=== PATIENT | female | born 1995 | race Caucasian/White ===

== ENCOUNTER 2018-02-27 15:01 | Emergency (ER) | payer BC, MEDICAID ==
[~2018-02-27] VITALS: Ht 162.6 cm; Wt 100.0 kg
[~2018-02-27 15:01] MED LIST: CYCL-1 PO; DEC4T PO; METH4TAB3 PO; NAP375T PO; NAPR-56 PO
[2018-02-27 15:03] VITALS: BP 142/85
[2018-02-27] MEDS ORDERED: IBUP-1984 PO (17:01)
== END 2018-02-27 17:11 | disposition home or self-care (01) ==
LOC: ER 15:01
DX: M25.571 Pain in right ankle and joints of right foot (principal); M25.471 Effusion, right ankle; J45.909 Unspecified asthma, uncomplicated; K21.9 Gastro-esophageal reflux disease without esophagitis; Z88.1 Allergy status to other antibiotic agents
CPT/HCPCS: 73610; 99284

== ENCOUNTER 2018-03-17 10:53 | Outpatient (CLI) | payer MEDICAID ==
[2018-03-17 10:53] VITALS: BP 147/87
[~2018-03-17 10:53] MED LIST changes: +IBUP-1984 PO
== END 2018-03-17 11:35 | disposition home or self-care (01) ==
LOC: ORTHO 10:53
PROVIDERS: ATTEND Nurse Practitioner Family
DX: S93.491A Sprain of other ligament of right ankle, initial encounter (principal); Z88.0 Allergy status to penicillin; X58.XXXA Exposure to other specified factors, initial encounter; Y93.89 Activity, other specified; Y92.89 Other specified places as the place of occurrence of the external cause; Y99.8 Other external cause status
CPT/HCPCS: 73610; 99213

== ENCOUNTER 2018-04-09 12:59 | Outpatient (CLI) | payer MEDICAID ==
[2018-04-09 12:59] VITALS: BP 135/83
[~2018-04-09 12:59] MED LIST changes: -IBUP-1984 PO
== END 2018-04-09 13:31 | disposition home or self-care (01) ==
LOC: ORTHO 12:59
PROVIDERS: ATTEND Nurse Practitioner Family
DX: S93.491D Sprain of other ligament of right ankle, subsequent encounter (principal); Z88.1 Allergy status to other antibiotic agents; X58.XXXD Exposure to other specified factors, subsequent encounter
CPT/HCPCS: 99213